=== PATIENT | male | born 1975 | race American Indian/Alaskan Native ===

== ENCOUNTER 2018-07-24 15:44 | Emergency (ER) | payer SELFPAY ==
[2018-07-24 15:51] VITALS: BP 136/96
== END 2018-07-24 17:39 | disposition left against medical advice (07) ==
LOC: ED 15:44
DX: R51 Headache (principal); Z53.21 Procedure and treatment not carried out due to patient leaving prior to being seen by health care provider

== ENCOUNTER 2020-09-28 08:18 | Emergency (ER) | payer OTHER ==
[2020-09-28 08:37] VITALS: BP 155/97
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
[2020-09-28] MEDS ORDERED: IBUPROFEN 800 MG TAB PO STA (11:28)
[2020-09-28] MEDS ORDERED: ACETAMINOPHEN 500 MG TAB PO STA (11:28)
== END 2020-09-28 12:56 | disposition home or self-care (01) ==
LOC: ED 08:18
DX: M54.5 Low back pain (principal); I10 Essential (primary) hypertension; J45.909 Unspecified asthma, uncomplicated; F17.200 Nicotine dependence, unspecified, uncomplicated; Z88.0 Allergy status to penicillin; Z79.899 Other long term (current) drug therapy; V87.7XXA Person injured in collision between other specified motor vehicles (traffic), initial encounter; Y93.89 Activity, other specified; Y92.488 Other paved roadways as the place of occurrence of the external cause; Y99.8 Other external cause status
CPT/HCPCS: 99282